=== PATIENT | female | born 1965 | race Caucasian/White ===

== ENCOUNTER 2019-06-07 09:23 | Outpatient (CLI) | payer OTHER, SELFPAY ==
--- NOTE | ~2019-06-07 | MM_ITS ---
EXAMINATION: MM diagnostic jeannie RT w sonya HISTORY: Six-month follow-up of probably benign scarring TECHNIQUE: ML, MLO and cc full field and spot 3-D tomosynthesis images of the right breast were perfo rmed and synthetic 2-D images were generated. CAD analysis was submitted and interpreted. High resolu tion targeted upper outer and lower outer quadrant right breast ultrasound was performed. COMPARISON: 12/01/2018 bilateral diagnostic digital mammogram and right breast ultrasound BREAST PARENCHYMAL COMPOSITION: There are scattered areas of fibroglandular density. FINDINGS: MAMMOGRAPHIC FINDINGS: There is stable architectural distortion in the mid outer right breast, without significant change si nce 12/01/2018. No interval mass, architectural distortion, malignant calcification, skin thickening or retraction si nce 12/11/2018 is detected. ULTRASOUND: Again noted is some prominent shadowing at the scar at 6-7 o'clock 3 cm from the nipple. There is an interval complicated cyst measuring 6 x 3.3 x 7 mm at 9:00 1 cm from the nipple. No inter nal vascularity or posterior shadowing is noted. Considering interval development of the complicated cysts and history of breast cancer, consider MRI breast imaging. IMPRESSION: 1. Interval new complicated cyst at 9:00 1 cm from nipple 2. Considering the history of right breast cancer and the interval development of the complicated cys t, consider MRI breast examination. BI-RADS Category 0: Incomplete: Needs additional imaging evaluation. Reviewed, dictated and finalized at location A. ING OPERATOR IMPRESSION: 1. Interval new complicated cyst at 9:00 1 cm from nipple 2. Considering the history of right breast cancer and the interval development of the complicated cyst, consider MRI breast examination. BI-RADS Category 0: Incomplete: Needs additional imaging evaluation.
--- NOTE | ~2019-06-07 | US_ITS ---
US breast RT limited DATE: 06/07/2019 10:57 Please refer to 06/07/2019 right diagnostic and limited right breast ultrasound report. BI-RADS Category 0: Incomplete; need additional imaging evaluation Recommendation: MRI breast examination Reviewed, dictated and finalized at Location A. Reviewed, dictated and finalized at location A. OR TESTER
== END 2019-06-07 09:24 | disposition home or self-care (01) ==
PROVIDERS: PCP Internal Medicine
DX: Z85.3 Personal history of malignant neoplasm of breast (principal); R92.8 Other abnormal and inconclusive findings on diagnostic imaging of breast
CPT/HCPCS: 76642; 77061; 77065; G0279

== ENCOUNTER 2020-05-14 16:08 | Outpatient (CLI) | payer OTHER, SELFPAY ==
--- NOTE | ~2020-05-14 | XR_ITS ---
EXAMINATION: XR chest 2V DATE: 05/14/2020 16:40 INDICATION: Right shoulder pain TECHNIQUE: PA and lateral views of the chest are obtained. COMPARISON: None available FINDINGS: The lungs are free of acute opacities. There is no pleural effusion or pneumothorax. The ca rdiomediastinal silhouette is normal. There is moderate thoracic spondylosis. IMPRESSION: 1. No acute cardiopulmonary abnormality. Reviewed, dictated and finalized at location A. LASS FITTER
--- NOTE | ~2020-05-14 | XR_ITS ---
EXAMINATION: XR shoulder RT min 2V DATE: 05/14/2020 16:40 INDICATION: Right shoulder pain. TECHNIQUE: 4 views of right shoulder were obtained. COMPARISON: None. FINDINGS: Bone alignment is normal. No fracture. Joint spaces are normal. IMPRESSION: 1. Normal right shoulder. Reviewed, dictated and finalized at location B. E MAKER IMPRESSION: 1. Normal right shoulder.
== END 2020-05-14 16:09 | disposition home or self-care (01) ==
LOC: CHSIMG 16:10
PROVIDERS: PCP Internal Medicine; Visit Provider Internal Medicine
DX: Z00.00 Encounter for general adult medical examination without abnormal findings (principal); M25.511 Pain in right shoulder
CPT/HCPCS: 71046; 73030

== ENCOUNTER 2020-05-30 07:20 | Outpatient (CLI) | payer OTHER, SELFPAY ==
[2020-05-30 07:42] LABS: Hematocrit 38.4 % (35.0-49.0); Hemoglobin 12.6 g/dL (12.0-15.0); Mean Corpuscular HGB Conc 32.8 g/dL (32.0-36.0); Mean Corpuscular Volume 103.5 fL (78.0-102.0); Mean Platelet Volume 10.1 fl (9.2-11.8); Platelet Count Result 231 K/mm3 (150-420); Red Blood Count 3.71 M/mm3 (4.20-5.40); Red Cell Distribution Width 12.8 % (11.6-14.4); White Blood Count 3.4 K/mm3 (4.8-10.8)
[2020-05-30 07:43] LABS: Add Urine Microscopic? NO; Appearance Urine Clear (Clear); Bilirubin Urine Negative (Negative); Blood Urine Negative (Negative); Color Urine Yellow (Yellow); Glucose Urine UA Negative (Negative); Ketones Urine Negative (Negative); Leukocyte Esterase Ur Negative (Negative); Nitrate Urine Negative (Negative); Protein Urine Negative (Negative); Urobilinogen Urine 0.2 mg/dL (0.2-1.0)
[2020-05-30 08:16] LABS: Band Neutrophils Percent 0 % (0-6); Basophils Absolute Manual 0.06 K/mm3 (0-0.1); Basophils Percent Manual 2 % (0-1); Eosinophils Absolute Manual 0.03 K/mm3 (0.02-0.5); Eosinophils Percent Manual 1 % (1-6); Lymphocytes Absolute Manual 1.42 K/mm3 (1.1-4.5); Lymphocytes Percent Manual 42 % (18-44); Monocytes Absolute Manual 0.17 K/mm3 (0.1-0.90); Monocytes Percent Manual 5 % (3-9); Neutrophils Percent Manual 50 % (46-73); Total Cells Counted 100
[2020-05-30 08:17] LABS: Platelet Estimate Adequate (Adequate)
[2020-05-30 08:50] LABS: Alanine Aminotransferase 59 U/L (14-59); Albumin Level 3.9 g/dL (3.4-5.0); Alkaline Phosphatase 44 U/L (46-116); Anion Gap 9 mmol/L (8-16); Aspartate Amino Transferase 56 U/L (15-37); Bilirubin,Total 0.4 mg/dL (0.00-1.00); Blood Urea Nitrogen 11 mg/dL (7-18); Calcium 8.7 mg/dL (8.5-10.1); Carbon Dioxide 29 mmol/L (21-32); Chloride 103 mmol/L (98-108); Cholesterol 196 mg/dL (0-200); Estimated Glomerular Filt Rate 57; Glucose 75 mg/dL (70-99); HDL Direct 59 mg/dL (40-60); LDL Cholesterol Calculated 94 mg/dL (<130); Osmolality Calculated 290 mOsm/kg (285-295); Potassium 4.2 mmol/L (3.5-5.1); Sodium 141 mmol/L (136-145); Thyroid Stimulating Hormone 2.01 uIU/mL (0.36-3.74); Triglycerides 213 mg/dL (0-150)
[2020-05-30 08:52] LABS: CRP < 0.2 mg/dL (0.0-0.9)
[2020-05-30 11:38] LABS: Vitamin B12 396 pg/mL (193-986)
[2020-06-02 11:17] LABS: GGT < 17 U/L (5-55)
[2020-06-02 15:42] LABS: Methylmalonic Acid 105 nmol/L (87-318)
[2020-06-03 06:38] LABS: Red Blood Cell Folate 990 ng/mL RBC (>280)
[2020-06-04 04:48] LABS: Hepatitis A Antibody IgM Nonreactive; Hepatitis B Core Antibody Nonreactive (Nonreactive); Hepatitis B Surface Antigen Nonreactive (Nonreactive); Hepatitis C Signal to Cutoff 0.02 ratio (<1.00); Hepatitis C Virus Antibody Nonreactive (Nonreactive)
== END 2020-05-30 07:21 | disposition home or self-care (01) ==
LOC: CHSLAB 07:22
PROVIDERS: PCP Internal Medicine; Visit Provider Internal Medicine
DX: Z00.00 Encounter for general adult medical examination without abnormal findings (principal); R94.5 Abnormal results of liver function studies; D75.89 Other specified diseases of blood and blood-forming organs; D72.819 Decreased white blood cell count, unspecified; M25.511 Pain in right shoulder
CPT/HCPCS: 36415; 80053; 80061; 80074; 81003; 82607; 82747; 82977; 83921; 84443; 85025; 86140

== ENCOUNTER 2022-09-28 15:48 | Outpatient (CLI) | payer OTHER, SELFPAY ==
--- NOTE | ~2022-09-28 | XR_ITS ---
XR thoracic spine 3V DATE: 09/28/2022 16:26 INDICATION: Back pain for one year. No injury. TECHNIQUE: AP, lateral, swimmer views COMPARISON: None FINDINGS: There is minimal degenerative spurring of the thoracic spine. No fracture or dislocation or bone destruction. The thoracic pedicles are intact. No paraspinal soft tissue thickening. No scolios is. IMPRESSION: Minimal degenerative spurring Reviewed, dictated and finalized at location L.
--- NOTE | ~2022-09-28 | XR_ITS ---
XR chest 2V DATE: 09/28/2022 16:27 INDICATION: Anxiety TECHNIQUE: PA and lateral views COMPARISON: 05/14/2020 2 view chest FINDINGS: Normal heart size. No hilar or mediastinal enlargement. No pulmonary infiltrate or consolid ation, pleural effusion or pulmonary vascular congestion or pneumothorax is detected. IMPRESSION: No active cardiopulmonary disease Reviewed, dictated and finalized at location L.
--- NOTE | ~2022-09-28 | XR_ITS ---
XR lumbar spine 2-3V DATE: 09/28/2022 16:26 INDICATION: Back pain for one year. No injury. TECHNIQUE: AP, lateral, coned lateral lumbosacral views COMPARISON: None FINDINGS: Normal alignment of the lumbar spine. No fracture or bone destruction is evident. The inclu ded lower thoracic and lumbar pedicles are intact. Moderate degenerative disease at L2-3 and L3-4. Remaining lumbar interspaces appear relatively preser yolande. The sacral iliac joints are intact. IMPRESSION: Mild to moderate degenerative disc disease at L2-3 and L3-4 Reviewed, dictated and finalized at location L.
== END 2022-09-28 15:49 | disposition home or self-care (01) ==
LOC: CHSIMG 15:51
PROVIDERS: PCP Internal Medicine; Visit Provider Internal Medicine
DX: M54.50 Low back pain, unspecified (principal); F32.9 Major depressive disorder, single episode, unspecified; M51.36 Other intervertebral disc degeneration, lumbar region
CPT/HCPCS: 71046; 72072; 72100

== ENCOUNTER 2024-09-10 13:56 | Outpatient (CLI) | payer OTHER, SELFPAY ==
--- NOTE | ~2024-09-10 | US_ITS ---
EXAM: Focused ultrasound examination of the soft tissues of the right lower face and upper neck HISTORY: localized swelling Right neck TECHNIQUE: Sonographic evaluation of the soft tissues of the right lower face and upper neck were per formed assessing grayscale appearance and color Doppler flow. COMPARISON: None. FINDINGS: Sonographic evaluation of the soft tissues of the right lower face and upper neck demonstrate benign fibrofatty and fibromuscular elements without a cystic or solid lesion of concern. The submandibular gland and parotid glands are unremarkable sonographically. IMPRESSION: No sonographic abnormality is appreciated on focused ultrasound examination, as detailed above.. Reviewed, dictated and finalized at location A.
--- OUTSIDE RECORDS SUMMARY | 2024-09-10 14:01 | XMS_ITS | Referral Summary ---
Author Organization [facility] Address [address] [place] [address] Care Team Providers Care Rodent Control Worker Name Role Phone Harpreet Heath MD Primary Care Provider [phone] Harpreet Heath MD Unavailable [phone] Kelley Vicente MD Unavailable Leonel William MD Unavailable [phone] Encounters Date Type Department Care Team Description 07/05/2024 11:30 AM CDT Office Visit [facility] Surgery [address] [place] [address] [address] [place] [address] Kelley Vicente MD S/P cosmetic plastic surgery (Primary Dx) from Last 3 Months Allergies Active Allergy Reactions Criticality Noted Date Comments Ampicillin Rash Medium Per inpatient chart records, cefazolin was administered in 2020 & 2021 Medications buPROPion XL (WELLBUTRIN XL) 150 mg 24 hr tabletIndicatio ns:sweating Take 1 tablet (150 mg total) by mouth every morning 11/01/2023 Active omeprazole (PriLOSEC) 20 mg capsule Take 1 capsule (20 mg total) by mouth daily as needed (heartburn) Active acetaminophen (TYLENOL) 500 mg tablet Take 2 tablets (1,000 mg total) by mouth every 6 (six) hours as needed for pain Active escitalopram (LEXAPRO) 10 mg tabletIndicatio ns:Anxiety with Depression Take 1 tablet (10 mg total) by mouth nightly Active naltrexone (DEPADE) 50 mg tabletIndicatio ns:alcoholism Take 1 tablet (50 mg total) by mouth nightly 02/19/2024 Active ibuprofen 200 mg tab/cap Take 2 tablet/capsu le (400 mg total) by mouth every 6 (six) hours as needed for pain Active gabapentin (NEURONTIN) 600 mg tablet TAKE ONE TABLET BY MOUTH AT BEDTIME 90 tablet 06/04/2024 Active oxyBUTYnin (DITROPAN) 5 mg tablet TAKE TWO TABLETS BY MOUTH DAILY 60 tablet 2 06/22/2024 Active Active Problems Problem Noted Date Diagnosed Date Varicose veins of lower extremity with pain, lef t 11/24/2023 Varicose veins of left lower extremity with pain 05/30/2023 Hx of breast reconstruction 05/21/2021 Overview (05/21/2021): Added automatically from request for surgery [id number] Personal history of breast cancer 07/17/2020 Overview (07/17/2020): Added automatically from request for surgery [id number] Breast asymmetry between emilio maikol breast and reconstructed breast 07/17/2020 Overview (07/17/2020): Added automatically from request for surgery [id number] Encounter for cosmetic procedure 07/17/2020 Overview (07/17/2020): Added automatically from request for surgery [id number] Abnormal findings on diagnostic imaging of breas t 06/22/2019 History of breast cancer 12/20/2017 Malignant neoplasm of lower- outer quadrant of right breast of female, estrogen receptor positive (CMS/HCC) 12/31/2016 Immunizations Immunization Administration Dates Next Due DTP 12/27/1970, 7,1965,05/25,1965 Influenza, Quadrivalent, Melissa l Culture-based MDCK, Preservative Free, Antibiotic Free, Intramuscular 02/01/2020 MMR 09/25/1991 Measles / Rubella 08/18/1970 Mumps 03/20/1971 OPV 12/27/1970, 7,1965,05/25,1965 Rubella 03/08/1966 Td, adsorbed 09/25/1991,11/11/1975 Tdap 01/11/2014 Social History Tobacco Use Types Packs/Day Years Used Date Smoking Tobacco: Never Passive Smoke Exposure: Never Smokeless Tobacco: Never Tobacco Cessation:Counseling Given: Not Answered Alcohol Use Standard Drinks/Week Comments Yes 5 (1 standard drink = 0.6 oz pur e alcohol) AUDIT-C Answer Date Recorded Q1: How often do you have a drink containing alcohol? Never 04/11/2024 Q2: How many drinks containi ng alcohol do you have on a typical day when you are drinking? Patient does not drink Q3: How often do you have si x or more drinks on one occasion? Never 04/11/2024 Personal Safety Answer Date Recorded Have you ever been in or are you currently in a harmful physical or emotional relationship or is someone making you feel afraid or unsafe? Denies 04/11/2024 Comments No Sex and Gender Information Value Date Recorded Sex Assigned at Not on file Legal Sex Female 10:01 AM CDT Gender Identity Female 11/15/2023 10:36 AM CDT Sexual Orientation Choose not to disclose 2020 7:42 AM CDT Last Filed Vital Signs Vital Sign Reading Time Taken Comments Blood Pressure 178/89 04/11/2024 11:05 AM GRAIN CLEANER Pulse 68 04/11/2024 11:05 AM GRAIN CLEANER Temperature 36.5 C (97.7 F) 04/11/2024 11:05 AM GRAIN CLEANER Respiratory Rate 45 04/11/2024 11:05 AM GRAIN CLEANER Oxygen Saturation 95% 04/11/2024 11:05 AM GRAIN CLEANER Inhaled Oxygen Concentration - - Weight 61.2 kg (135 lb) 04/11/2024 6:51 AM GRAIN CLEANER Height 165.1 cm (5' 5 ) 04/11/2024 6:51 AM GRAIN CLEANER Body Mass Index 22.47 04/11/2024 6:51 AM GRAIN CLEANER Plan of Treatment Not on file Procedures Procedure Name Priority Date/Time Associated Diagnosis Comments SCREENING MAMMOGRAM BILATERAL W ZARIA Schedule Routine, Read Routine (OP Routine) 10/03/2023 11:23 AM CDT Screening mammogram, encounter for from Last 3 Months or Most Recently Relevant to Health Maintenance Results * Screening Mammogram Bilateral W Zaria (10/03/2023 11:23 AM CDT) Anatomical Region Laterality Modality Breast Bilateral Mammography Narrative 10/04/2023 10:50 AM CDT Mammogram Technique: Bilateral Digital Breast Tomosynthesis, Bilateral C-view 2D Screening mammogram. Views obtained: bilateral craniocaudal and bilateral mediolateral oblique. Computer Aided Detection was performed. Mammogram Findings: The present examination has been compared to prior imaging studies performed at [facility] on 01/23/2020, 02/02/2021 and 06/25/2022. There are scattered areas of fibroglandular density. There are post breast conservation therapy changes in the right breast. There is no suspicious abnormality in either breast. Impression: Post breast conservation therapy changes in the right breast are benign. Annual screening mammography is recommended. OVERALL FINAL ASSESSMENT: BI-RADS CATEGORY 2: Benign. Procedure Note Chaparrita Berrios MD - 10/04/2023 Mammogram Technique: Bilateral Digital Breast Tomosynthesis, Bilateral C-view 2D Screening mammogram. Views obtained: bilateral craniocaudal and bilateral mediolateral oblique. Computer Aided Detection was performed. Mammogram Findings: The present examination has been compared to prior imaging studies performed at [facility] on 01/23/2020, 02/02/2021 and 06/25/2022. There are scattered areas of fibroglandular density. There are post breast conservation therapy changes in the right breast. There is no suspicious abnormality in either breast. Impression: Post breast conservation therapy changes in the right breast are benign. Annual screening mammography is recommended. OVERALL FINAL ASSESSMENT: BI-RADS CATEGORY 2: Benign. us Self Screening Mammogram IMG MAMMO PROCEDURES Fi nal Result from Last 3 Months or Most Recently Relevant to Health Maintenance Insurance [facility] PL[facility] PL[facility] Advance Directives For more information, please contact: [phone] * Full Code (Latest Code Status on File) Date Activated Date Inactivated Comments 08/04/2021 3:43 PM 08/05/2021 2:37 PM * Full Code Date Activated Date Inactivated Comments 09/12/2020 12:03 PM 09/13/2020 4:01 PM Care Teams Rodent Control Worker Relationship Specialty Start Date End Date Harpreet Heath MD PCP - General 01/10/17 Harpreet Heath MD 01/10/17 Kelley Vicente MD [address] [facility] [address] [place] [address] Referring Physician Plastic Surgery 09/13/20 Leonel William MD [address] [facility] [address] [place] [address] Surgeon Vascular Surgery 01/05/24
--- OUTSIDE RECORDS SUMMARY | 2024-09-10 14:01 | XMS_ITS | Encounter Summary ---
Author Organization [facility] Address [address] [place] [address] Phone Care Team Providers Care Manager Intelligence Name Role Phone Harpreet Heath MD Primary Care Provider [phone] Harpreet Heath MD Unavailable [phone] Kelley Vicente MD Unavailable [phone] Leonel Willaim MD Unavailable [phone] Encounter Details Date Type Department Care Team (Latest Contact Info) Description 12/01/2018 Orders Only [facility] Scanning, Provider Social History Tobacco Use Types Packs/Day Years Used Date Smoking Tobacco: Never Smokeless Tobacco: Never Alcohol Use Standard Drinks/Week Comments Yes 0 (1 standard drink = 0.6 oz pur e alcohol) Comments No Sex and Gender Information Value Date Recorded Sex Assigned at Not on file Legal Sex Female 10:01 AM CDT Gender Identity Female 11/15/2023 10:36 AM CDT Sexual Orientation Choose not to disclose 2020 7:42 AM CDT documented as of this encounter Plan of Treatment Not on file documented as of this encounter Procedures Procedure Name Priority Date/Time Associated Diagnosis Comments SCAN - LABS 12/01/2018 documented in this encounter Results * SCAN - LABS (12/01/2018) us Provider Scanning Final Result documented in this encounter Visit Diagnoses Not on filedocumented in this encounter Care Teams Manager Intelligence Relationship Specialty Start Date End Date Harpreet Heath MD PCP - General 01/10/17 Harpreet Heath MD 01/10/17 Kelley Vicente MD [address] [facility] [address] [place], [place] [id number] Referring Physician Plastic Surgery 09/13/20 Leonel William MD [address] [facility] [address] [place] [address] Surgeon Vascular Surgery 01/05/24 documented as of this encounter
--- OUTSIDE RECORDS SUMMARY | 2024-09-10 14:01 | XMS_ITS | Clinical Summary ---
Author Organization [facility] Address [address] [place] [address] Care Team Providers Care Work Force Advisor Name Role Phone Harpreet Heath MD Primary Care Provider [phone] Harpreet Heath MD Unavailable [phone] Kelley Vicente MD Unavailable [phone] Leonel William MD Unavailable [phone] Allergies Active Allergy Reactions Criticality Noted Date [...] (05/21/2021): Added automatically from request for surgery [id number] Personal history of breast cancer 07/17/2020 Overview (07/17/2020): Added automatically from request for surgery [id number] Breast asymmetry between emilio maikol breast and reconstructed breast 07/17/2020 Overview (07/17/2020): Added automatically from request for surgery [id number] Encounter for cosmetic procedure 07/17/2020 Overview (07/17/2020): Added automatically from request for surgery [id number] Abnormal findings on diagnostic imaging of breas t 06/22/2019 History of breast cancer 12/20/2017 Malignant neoplasm of lower- outer quadrant of right breast of female, estrogen receptor positive ([facility]/HCC) 12/31/2016 Encounters Date Type Department Care Team Description 07/05/2024 11:30 AM CDT Office Visit [facility] Surgery [facility] [address] [place] [address] Kelley Vicente MD S/P cosmetic plastic surgery (Primary Dx) from Last 3 Months Immunizations Immunization Administration Dates Next Due DTP 12/27/1970, 7,1965,05/25,1965 Influenza, Quadrivalent, Melissa l Culture-based MDCK, Preservative Free, Antibiotic Free, Intramuscular 02/01/2020 MMR 09/25/1991 Measles / Rubella 08/18/1970 Mumps 03/20/1971 OPV 12/27/1970, 7,1965,05/25,1965 Rubella 03/08/1966 Td, adsorbed 09/25/1991,11/11/1975 Tdap 01/11/2014 Surgical History Surgery Date Site/Laterality Comments TUBAL LIGATION 04/25/2001 - 04/24/2002 BLEPHAROPTOSIS REPAIR 04/25/2014 - 04/24/2015 Bilateral MASTECTOMY, PARTIAL 02/10/2017 Right partial mastectomy with sentinel lymph node biopsy BREAST BIOPSY 09/21/2019 Right COLONOSCOPY 04/25/2014 - 04/24/2015 FACIAL COSMETIC SURGERY 04/25/2014 - 04/24/2015 face lift REDUCTION MAMMAPLASTY 08/04/2021 Left with tummy tuck ABDOMINOPLASTY 09/12/2020 VARICOSE VEIN SURGERY 01/05/2024 Left stab phlebectomy(L Leg) ABLATION 04/25/2014 - 04/24/2015 Uterine OTHER SURGICAL HISTORY 09/12/2020 evacuation of hematoma - abdomen Medical History Medical History Date Comments Wears glasses Breast cancer (HCC) last radiati on 2018 PONV (postoperative nausea and vomiting) History of alcoholism (HCC) Varicose veins of lower extremity Acid reflux Family History Medical History Relation Name Comments Cancer Father Lung cancer Father Family history of lung cancer - (Added by TW Conv) No Known Problems Mother Relation Name Status Comments Father Alive Mother Alive Social History Tobacco Use Types Packs/Day Years [...] not to disclose 2020 7:42 AM CDT Obstetrics History Last Filed Vital Signs Vital Sign Reading Time Taken Comments Blood Pressure 178/89 04/11/2024 11:05 AM COSMETOLOGY PROFESSOR Pulse 68 04/11/2024 11:05 AM COSMETOLOGY PROFESSOR Temperature 36.5 C (97.7 F) 04/11/2024 11:05 AM COSMETOLOGY PROFESSOR Respiratory Rate 45 04/11/2024 11:05 AM COSMETOLOGY PROFESSOR Oxygen Saturation 95% 04/11/2024 11:05 AM COSMETOLOGY PROFESSOR Inhaled Oxygen Concentration - - Weight 61.2 kg (135 lb) 04/11/2024 6:51 AM COSMETOLOGY PROFESSOR Height 165.1 cm (5' 5 ) 04/11/2024 6:51 AM COSMETOLOGY PROFESSOR Body Mass Index 22.47 04/11/2024 6:51 AM COSMETOLOGY PROFESSOR Plan of Treatment Health Maintenance Due Date Last Done Comments Cervical Cancer Screening 1965 Colon Cancer Screening-Colonoscopy 1965 Depression Screening 1965 Hepatitis C Screening 1965 Hepatitis B Screening 1983 Regular Well Visit/Exam 18-64 1983 Zoster Vaccine (1 of 2) 2015 Covid-19 Vaccine (3 - season) 2023 06/07/2020, 05/10/2020 Influenza Vaccine (#1) 2023 02/01/2020 DTaP/Tdap/Td Vaccine (7 - Td or Tdap) 01/12/2024 01/11/2014, 09/25/1991, 11/11/1975, Additional history exists Breast Cancer Screening-Mammogram 10/02/2024 10/03/2023, 06/25/2022, 02/02/2021, Additional history exists Pneumococcal vaccine <65 Aged Out No longer eligible based on patient's age to complete this topic Procedures Procedure Name Priority Date/Time Associated Diagnosis Comments SCREENING MAMMOGRAM BILATERAL W ROBERT Schedule Routine, Read Routine (OP Routine) 10/03/2023 11:23 AM CDT Screening mammogram, encounter for from Last 3 Months or Most Recently Relevant to Health Maintenance Results * Screening Mammogram Bilateral W Robert (10/03/2023 11:23 AM CDT) Anatomical Region Laterality Modality Breast Bilateral Mammography Narrative 10/04/2023 10:50 AM CDT Mammogram Technique: Bilateral Digital Breast Tomosynthesis, Bilateral C-view 2D Screening mammogram. Views obtained: bilateral craniocaudal and bilateral mediolateral oblique. Computer Aided Detection was performed. Mammogram Findings: The present examination has been compared to prior imaging studies performed at [facility] on 01/23/2020, 02/02/2021 and 06/25/2022. There are [...] compared to prior imaging studies performed at [facility] on 01/23/2020, 02/02/2021 and 06/25/2022. There are [...] Most Recently Relevant to Health Maintenance Insurance [facility] PLUS [facility]US [facility] PLUS Advance Directives For more information, please contact: [phone] * Full Code (Latest Code Status on File) Date Activated Date Inactivated Comments 08/04/2021 3:43 PM 08/05/2021 2:37 PM * Full Code Date Activated Date Inactivated Comments 09/12/2020 12:03 PM 09/13/2020 4:01 PM Care Teams Work Force Advisor Relationship Specialty Start Date End Date Harpreet Heath MD PCP - General 01/10/17 Harpreet Heath MD 01/10/17 Kelley Vicente MD [address] [place] [address] [place], [place] [id number] Referring Physician Plastic Surgery 09/13/20 Leonel William MD [address] [place] [address] [place], [place] [id number] Surgeon Vascular Surgery 01/05/24
--- OUTSIDE RECORDS SUMMARY | 2024-09-10 14:01 | XMS_ITS | Encounter Summary ---
Author Organization [facility] Address [address] [place] [address] Phone Care Team Providers Care Tool And Die Maker Name Role Phone Harpreet Heath MD Primary Care Provider [phone] Harpreet Heath MD Unavailable [phone] Kelley Vicente MD Unavailable Leonel William MD Unavailable [phone] Encounter Details Date Type Department Care Team (Late st Contact Info) Description 06/22/2017 Orders Only [facility] ProviderAlejandro MD [address] [place] [id number] Social History Tobacco Use Types Packs/Day Years Used Date Smoking Tobacco: Never Comments Unknown Sex and Gender Information Value Date Recorded Sex Assigned at Not on file Legal Sex Female 10:01 AM CDT Gender Identity Female 11/15/2023 10:36 AM CDT Sexual Orientation Choose not to disclose 2020 7:42 AM CDT documented as of this encounter Plan of Treatment Not on file documented as of this encounter Procedures Procedure Name Priority Date/Time Associated Diagnosis Comments GENERAL RADIOLOGY REPORT 06/22/2017 documented in this encounter Results * GENERAL RADIOLOGY REPORT (06/22/2017) Anatomical Region Laterality Modality Radiographic Kirsten ging Narrative 06/22/2017 Ordered by an unspecified provider. Historical Provider MD DAVIS XR PROCEDURES Final R esult documented in this encounter Visit Diagnoses Not on filedocumented in this encounter Care Teams Tool And Die Maker Relationship Specialty Start Date End Date Harpreet Heath MD PCP - General 01/10/17 Harpreet Heath MD 01/10/17 Kelley Vicente MD [address] [place] [address] [place], [place] [id number] Referring Physician Plastic Surgery 09/13/20 Leonel William MD [address] [place] [address] [place] [address] Surgeon Vascular Surgery 01/05/24 documented as of this encounter
--- OUTSIDE RECORDS SUMMARY | 2024-09-10 14:01 | XMS_ITS ---
Author Organization [facility] Address [address] [place] [address] Care Team Providers Care Pot Reliner Name Role Phone Harpreet Heath MD Primary Care Provider [phone] Harpreet Heath MD Unavailable [phone] Kelley Vicente MD Unavailable [phone] Leonel William MD Unavailable [phone] Active Problems Problem Noted Date Diagnosed Date Varicose veins of lower extremity with pain, lef t 11/24/2023 Varicose veins of left lower extremity with pain 05/30/2023 Hx of breast reconstruction 05/21/2021 Overview (05/21/2021): Added automatically from request for surgery [id number] Personal history of breast cancer 07/17/2020 Overview (07/17/2020): Added automatically from request for surgery [id number] Breast asymmetry between emilio maikol breast and reconstructed breast 07/17/2020 Overview (07/17/2020): Added automatically from request for surgery [id number] Encounter for cosmetic procedure 07/17/2020 Overview (07/17/2020): Added automatically from request for surgery [id number] Abnormal findings on diagnostic imaging of breas t 06/22/2019 History of breast cancer 12/20/2017 Malignant neoplasm of lower- outer quadrant of right breast of female, estrogen receptor positive (CMS/HCC) 12/31/2016 Current Treatment and Therapy Plans No current plan information found. Past Treatment and Therapy Plans No past plan information found. Radiation Treatments * Course C1 R BREAST 2017 04/12/2017 - 05/17/2017 Treatment Period Energy Fraction Dose Fractions Total Dose Plans Planned RT BRST BOOST 05/06/2017 - 05/17/2017 200 8 / 1,600 RIGHT BREAST:1 04/28/2017 - 05/05/2017 266 5 / 1,330 RIGHT BREAST 04/12/2017 - 04/27/2017 277 11 / 4,433.3 Reference Points Delivered PTV BOOST_DPV 05/06/2017 - 05/17/2017 1,600 PTV R [id number] 04/28/2017 - 05/05/2017 1,330 DAVIS WP 04/12/2017 - 04/27/2017 3,048
--- OUTSIDE RECORDS SUMMARY | 2024-09-10 14:01 | XMS_ITS | Encounter Summary ---
Author Organization [facility] Healthcare Address [address] [place] [address] Care Team Providers Care Dry Cleaner Hand Name Role Phone Harpreet Heath MD Primary Care Provider [phone] Harpreet Heath MD Unavailable [phone] Kelley Vicente MD Unavailable [phone] Leonel William MD Unavailable [phone] Encounter Details Date Type Department Care Team (Late st Contact Info) Description 04/05/2018 Telephone [facility] Advanced Medicine Radiation Oncology [address] [facility] [place] [address] Shaq Hawk CMA Social History Tobacco Use Types Packs/Day Years [...] on file documented as of this encounter Visit Diagnoses Not on filedocumented in this encounter Care Teams Dry Cleaner Hand Relationship Specialty Start Date End Date Harpreet Heath MD PCP - General 01/10/17 Harpreet Heath MD 01/10/17 Kelley Vicente MD [address] [facility] [address] [place] [address] Referring Physician Plastic Surgery 09/13/20 Leonel William MD [address] [facility] [address] [place] [address] Surgeon Vascular Surgery 01/05/24 documented as of this encounter
--- OUTSIDE RECORDS SUMMARY | 2024-09-10 14:01 | XMS_ITS | Patient Health Record ---
Author Organization [facility] [employer] Address [address] [place] [address] Care Team Providers Care Carpentry Specialist Name Role Phone Curtis Parada Unavailable [phone] Brittanysilvio Yue Unavailable [phone] Migration, Provider Unavailable Unavailable Allergies No Known Allergies Reason For Referral No Information Medications Medication SIG (Take, Route, Frequency, Duration) Notes Start Date End Date Status oxyBUTYnin Chloride 5 MG Oral 08/24/2023 Active Escitalopram Oxalate 10 MG 1 tablet Oral Once a day for 90 days Active Gabapentin 600 MG Oral 08/24/2023 A ctive buPROPion HCl ER (XL) 150 MG 1 tablet in the morning Oral Once a day for 90 days Active buPROPion HCl ER (XL) 300 MG 1 tablet in the morning Orally Once a day for 90 days Active Naltrexone HCl 50 MG 1 tablet Orally Once a day for 90 days Active Escitalopram Oxalate 10 MG TAKE ONE TABLET BY MOUTH DAILY Active SEMAGLUTIDE (WEIGHT LOSS) 0.25 MG/0.5 ML SUBCUTANEOUS PEN INJECTOR *Reorder from [employer] for eRx and Interaction Alerts* 08/24/2023 Active Social History Tobacco Use: Social History Observation Description Date Details (start date - stop date) Never Smoker NA - NA Sex Assigned At : Social History Observation Description Sex Assigned At Female Tobacco Control (Standard) Question Answer Notes Tobacco use: Nonsmoker AUDIT-C (Standard) Question Answer Notes Did you have a drink containing alcohol in the p ast year? No Problems Problem Type SNOMED Code ICD Code Onset Dates Problem Status W/U Status Risk Notes Problem Alcohol dependence, uncomplicated (F10.20) Active confirmed Problem Generalized anxiety disorder (34438750) Generalized anxiety disorder (F41.1) Active confirmed Vital Signs Heart Rate 76 /min 07/25/2024 Height-cm 165.10 cm 07/25/2024 Blood pressure diastolic 65 mm Hg 07/25/2024 Weight-kg 63.5 kg 07/25/2024 Height 65.00 in 07/25/2024 Blood pressure systolic 93 mm Hg 07/25/2024 Weight 140 lbs 07/25/2024 BMI 23.29 kg/m2 07/25/2024 Encounters Encounter Location Date Provider Diagnosis [address] [address] 09/30/2023 Yue Kurilla Alcohol dependence, uncomplicated F10.20 and Generalized anxiety disorder F41.[address] [address] 01/25/2024 Yue Kurilla Alcohol dependence, uncomplicated F10.20 and Generalized anxiety disorder F41.[address] [address] 07/25/2024 Yueginger Rubio Encounter for screening for depression Z13.31 ; Encounter for screening for cardiovascular disorders Z13.6 ; Alcohol dependence, uncomplicated F10.20 and Generalized anxiety disorder F41.[address] [address] 09/11/2023 Provider Migration Assessments Encounter Date Diagnosis (ICD Code) Assessment Notes Treatment Notes Treatment Clinical Notes Section Notes 09/30/2023 Alcohol dependence, uncomplicated (ICD-10 - F10.20) Patient requesting to transition to PO naltrexone due to scheduling for monthly injections, previously tolerated PO treatment. Stop Vivitrol injection and start naltrexone 50mg qd 09/30/2023 Generalized anxiety disorder (ICD-10 - F41.1) 01/25/2024 Alcohol dependence, uncomplicated (ICD-10 - F10.20) 07/25/2024 Encounter for screening for depression (ICD-10 - Z13.31) 07/25/2024 Encounter for screening for cardiovascular disorders (ICD-10 - Z13.6) 01/25/2024 Generalized anxiety disorder (ICD-10 - F41.1) 07/25/2024 Alcohol dependence, uncomplicated (ICD-10 - F10.20) 07/25/2024 Generalized anxiety disorder (ICD-10 - F41.1) 01/25/2024 Other Stable, continue current medications. Refills sent. Patient educated on all medications including potential benefits, side effects, risks. Educated on proper dosing schedule and importance of compliance. 07/25/2024 Other Stable, cont current medications. Refills sent in. Patient educated on all medications including potential benefits, side effects, risks. Educated on proper dosing schedule and importance of compliance. -Assessment and treatment plan reviewed with patient. -Compliance with treatment plan importance discussed. -Discussed the risks/benefits of this medication -Discussed medication side effects. -Contact office if symptoms worsen. -Discussed that it can take up to 6-8 weeks to see full therapeutic effects of psychotropic medications. -Crisis prevention hotline 388. Plan Of Treatment Next Appt Details Provider Name:Yue Diaz elliott, 12/26/2024 04:30:00 PM, [address] [facility] [address], [facility] [address], [place], [address], Insurance Providers Payer Name Payer Address Payer Phone Subscriber Number Group Number Insured Name Patient Relationship to Insured Coverage Start Date Coverage End Date [facility] [address] [place] [address] [id number] KATALINA ZIMMER Spouse - patient is the spouse of the insured Medical (General) History Medical History History ICD Code Problems: Alcohol dependence Alcohol withdrawal Attention deficit hyperactivity disorder , combined type Attention deficit hyperactivity disorder , predominantly inattentive type Generalized anxiety disorder , Surgical History Surgery Date(Month/Year) Breast surgery (39035) 09/11/2016 Endometrial ablation (51517) 02/06/2016
== END 2024-09-10 13:57 | disposition home or self-care (01) ==
LOC: CHSIMG 13:59
PROVIDERS: PCP Internal Medicine; Visit Provider Nurse Practitioner Family
DX: R22.0 Localized swelling, mass and lump, head (principal)
CPT/HCPCS: 76536

== ENCOUNTER 2025-01-15 16:29 | Outpatient (CLI) | payer OTHER, SELFPAY ==
--- NOTE | ~2025-01-15 | XR_ITS ---
EXAMINATION: XR hand RT min 3V, 01/15/2025 16:50 CDT HISTORY: BL hand pain, right ant. shoulder pain COMPARISON: No comparisons available. Findings: No acute fracture or malalignment. No significant degenerative changes. Soft tissues unremarkable. Impression: No acute fracture or malalignment. Reviewed, dictated and finalized at location A. Impression: No acute fracture or malalignment.
--- NOTE | ~2025-01-15 | XR_ITS ---
EXAMINATION: XR shoulder RT min 2V, 01/15/2025 16:50 CDT HISTORY: BL hand pain, right ant. shoulder pain COMPARISON: No comparisons available. Findings: No acute fracture or malalignment. No significant degenerative changes. Soft tissues unremarkable. Impression: No acute fracture or malalignment. Reviewed, dictated and finalized at location A. Impression: No acute fracture or malalignment.
--- NOTE | ~2025-01-15 | XR_ITS ---
EXAMINATION: XR hand LT min 3V, 01/15/2025 16:45 CDT HISTORY: BL hand pain, right ant. shoulder pain COMPARISON: No comparisons available. Findings: No acute fracture or malalignment. Severe degenerative changes of the second distal interphalangeal joint and the first metacarpal carpal joint. Soft tissues unremarkable. Impression: No acute fracture or malalignment. Reviewed, dictated and finalized at location A. Impression: No acute fracture or malalignment.
--- OUTSIDE RECORDS SUMMARY | 2025-01-15 16:32 | XMS_ITS | Patient Health Record ---
Author Organization [facility] [employer] Address [address] [facility] [address] [place] [address] Care Team Providers Care Tire Debeader Name Role Phone Yue Rubio Unavailable [phone] Allergies No Known Allergies Reason For Referral No Information Medications Medication SIG (Take, Route, Frequency, Duration) Notes Start Date End Date Status Naltrexone HCl 50 MG Tablet 1 tablet Orally Once a day; Duration: 90 days 12/26/2024 06/24/2025 Active buPROPion HCl ER (XL) 300 MG Tablet Extended Release 24 Hour 1 tablet in the morning Orally Once a day; Duration: 90 days 12/26/2024 Active SEMAGLUTIDE (WEIGHT LOSS) 0.25 MG/0.5 ML SUBCUTANEOUS PEN INJECTOR *Reorder from [employer] for eRx and Interaction Alerts* 08/24/2023 Active Gabapentin 600 MG Tablet Oral 08/24/2023 Active oxyBUTYnin Chloride 5 MG Tablet Oral 08/24/2023 Active Escitalopram Oxalate 10 MG Tablet 1 tablet Oral Once a day; Duration: 90 days 12/26/2024 Active buPROPion HCl ER (XL) 150 MG Tablet Extended Release 24 Hour 1 tablet in the morning Oral Once a day; Duration: 90 days 12/26/2024 Active Social History Tobacco Use: Social History Observation Description Date Details (start date - stop date) Never Smoker NA - NA Sex Assigned At : Social History Observation Description Sex Assigned At Female Social History Social History Social Info Question Answer Notes Household: Marital Status: Number of Adults in household: 4 Level of Education: Finished College Drug/Alcohol: Social Info Question Answer Notes Drugs Have you used drugs other than those for medical reasons in the past 12 months? No AUDIT-C (Standard) Did you have a drink containing alcohol in the past year? No Tobacco Use: Social Info Question Answer Notes Tobacco Control (Standard) Tobacco use: Nonsmoker Additional Details Category Social Info Options Details Migrated Social History Migrated Social History Alcohol Intake: None 10/11/2022,Tobacco Years: Never smoker 09/30/2022 Problems Problem Type SNOMED Code ICD Code Onset Dates Problem Status W/U Status Risk Notes Problem Alcohol dependence (49018910) Alcohol dependence, uncomplicated (F10.20) Active confirmed Problem Generalized anxiety disorder (92115040) Generalized anxiety disorder (F41.1) Active confirmed Vital Signs Heart Rate 67 /min 12/26/2024 Height-cm 165.1 cm 12/26/2024 Blood pressure diastolic 73 mm Hg 12/26/2024 Weight-kg 66.32 kg 12/26/2024 Height 65.00 in 12/26/2024 Blood pressure systolic 117 mm Hg 12/26/2024 Weight 146.2 lbs 12/26/2024 BMI 24.33 kg/m2 12/26/2024 Encounters Encounter Location Date Provider Diagnosis [facility] [employer] [address] [address] 01/25/2024 Yue Rubio Alcohol dependence, uncomplicated F10.20 and Generalized anxiety disorder F41.1 [facility] [employer] [address] [address] 07/25/2024 Yue Rubio Encounter for screen ing for depression Z13.31 ; Encounter for screening for cardiovascular disorders Z13.6 ; Alcohol dependence, uncomplicated F10.20 and Generalized anxiety disorder F41.1 [facility] [employer] [address] [address] 12/26/2024 Yue Kursilvio Alcohol dependence, uncomplicated F10.20 and Generalized anxiety disorder F41.1 Assessments Encounter Date Diagnosis (ICD Code) Assessment Notes Treatment Notes Treatment Clinical Notes Section Notes 01/25/2024 Alcohol dependence, uncomplicated (ICD-10 - F10.20) 07/25/2024 Encounter for screening for depression (ICD-10 - Z13.31) 12/26/2024 Alcohol dependence, uncomplicated (ICD-10 - F10.20) 12/26/2024 Generalized anxiety disorder (ICD-10 - F41.1) SSRI/SNRI side effects discussed including but not limited to, gastric upset, nausea, vomiting, diarrhea and/or constipation, weight changes, sexual side effects including loss of libido, increased suicidal thoughts/behavi ors in children and young adults, and serotonin syndrome. Common side effects of Wellbutrin include insomnia, increased anxiety, nausea, dizziness, decreased appetite, restlessness, irritability and anger, increased sweating or hot flashes, tremors, joint pain. Wellbutrin is not recommended in individuals with a history of seizures. If side effects persist, please contact the office. 07/25/2024 Encounter for screening for cardiovascular disorders [...] therapeutic effects of psychotropic medications. -Crisis prevention [facility] 988. 12/26/2024 Other Stable on current medication regimen, continue at current doses. -Refills sent in today -No concerns today Patient educated on all medications including potential [...] therapeutic effects of psychotropic medications. -Crisis prevention [facility] 988. Plan Of Treatment Next Appt Details Provider Name:Tanmay milligan, 06/25/2025 04:15:00 PM, [address], [place], [address], Insurance Providers Payer Name Payer Address Payer Phone Subscriber Number Group Number Insured Name Patient Relationship to Insured Coverage Start Date Coverage End Date [facility] [address] [place] [phone] [id number] KATALINA ZIMMER Spouse - patient is the spouse of the insured Medical (General) History Medical History History ICD Code Problems: Alcohol dependence Alcohol withdrawal Attention deficit hyperactivity disorder , combined type Attention deficit hyperactivity disorder , predominantly inattentive type Generalized anxiety disorder , Surgical History Surgery Date(Month/Year) Breast surgery (92720) 09/11/2016 Endometrial ablation (92438) 02/06/2016
--- OUTSIDE RECORDS SUMMARY | 2025-01-15 16:32 | XMS_ITS | Clinical Summary ---
Author Organization [facility] Address [address] [place] [address] Care Team Providers Care Cloth Tester Name Role Phone Harpreet Heath MD Primary Care Provider [phone] Harpreet Heath MD Unavailable [phone] Kelley Vicente MD Unavailable [phone] Leonel William MD Unavailable [phone] Allergies Active Allergy Reactions Criticality Noted Date Comments Ampicillin Rash Medium Per inpatient chart records, cefazolin was administered in 2020 & 2021 Medications buPROPion XL (WELLBUTRIN XL) 150 mg 24 hr tabletIndicati ons:sweating Take 1 tablet (150 mg total) by mouth every morning 4 Active omeprazole (PriLOSEC) 20 mg capsule Take 1 capsule (20 mg total) by mouth daily as needed (heartburn) Active acetaminophen (TYLENOL) 500 mg tablet Take 2 tablets (1,000 mg total) by mouth every 6 (six) hours as needed for pain Active escitalopram (LEXAPRO) 10 mg tabletIndicati ons:Anxiety with Depression Take 1 tablet (10 mg total) by mouth nightly Active naltrexone (DEPADE) 50 mg tabletIndicati ons:alcoholism Take 1 tablet (50 mg total) by mouth nightly 4 Active ibuprofen 200 mg tab/cap Take 2 tablet/caps ule (400 mg total) by mouth every 6 (six) hours as needed for pain Active oxyBUTYnin (DITROPAN) 5 mg tablet TAKE TWO TABLETS BY MOUTH DAILY 60 tablet 2 5 Active gabapentin (NEURONTIN) 600 mg tablet TAKE ONE TABLET BY MOUTH AT BEDTIME 90 tablet 5 Active oxyBUTYnin (DITROPAN) 5 mg tablet TAKE TWO TABLETS BY MOUTH DAILY 60 tablet 2 5 12/21/19 Discontinued gabapentin (NEURONTIN) 600 mg tablet TRANSFERRED : 08/07/24 -READ RX NOTE (ALT-N)- TAKE ONE TABLET BY MOUTH AT BEDTIME 90 tablet 5 01/08/20 Discontinued Active Problems Problem Noted Date Diagnosed Date Varicose veins of lower extremity with pain, lef t 11/24/2023 Varicose veins of left lower extremity with pain 05/30/2023 Hx of breast reconstruction 05/21/2021 Overview (05/21/2021): Added automatically from request for surgery [id number] Personal history of breast cancer 07/17/2020 Overview (07/17/2020): Added automatically from request for surgery [id number] Breast asymmetry between emilio maikol breast and reconstructed breast 07/17/2020 Overview (07/17/2020): Added automatically from request for surgery [id number] Encounter for cosmetic procedure 07/17/2020 Overview (07/17/2020): Added automatically from request for surgery [id number] Abnormal findings on diagnostic imaging of breas t 06/22/2019 History of breast cancer 12/20/2017 Malignant neoplasm of lower- outer quadrant of right breast of female, estrogen receptor positive ([facility]/HCC) 12/31/2016 Immunizations Immunization Administration Dates Next Due [...] Date Comments Wears glasses Breast cancer (HCC) 11/2016 last radiati on 2017 PONV (postoperative nausea and vomiting) History of alcoholism (HCC) Varicose veins of lower extremity Acid reflux Family History Medical History Relation Name Comments Cancer Father Lung cancer Father Family history of lung cancer - (Added by TW Conv) Breast cancer Father's Sister No Known Problems Mother Ovarian cancer Neg Hx Relation Name Status Comments Father Alive Father's Sister Mother Alive Social History Tobacco Use Types [...] Comments Blood Pressure 178/89 04/11/2024 11:05 AM [facility] [employer] Pulse 68 04/11/2024 11:05 AM [employer] [facility] Temperature 36.5 C (97.7 F) 04/11/2024 11:05 AM [employer] Respiratory Rate 45 04/11/2024 11:05 AM [employer] Oxygen Saturation 95% 04/11/2024 11:05 AM [employer] Inhaled Oxygen Concentration - - Weight 63.5 kg (140 lb) 10/04/2024 11:16 AM CDT Height 165.1 cm (5' 5) 10/04/2024 11:16 AM CDT Body Mass Index 23.3 10/04/2024 11:16 AM CDT Plan of Treatment Health Maintenance Due Date Last Done Comments Cervical Cancer Screening 1965 Colon Cancer Screening-Colonoscopy 1965 Depression Screening 1965 Hepatitis C Screening 1965 Hepatitis B Screening 1983 Regular Well Visit/Exam 18-64 1983 Zoster Vaccine (1 of 2) 2015 DTaP/Tdap/Td Vaccine (7 - Td or Tdap) 01/12/2024 01/11/2014, 09/25/1991, 11/11/1975, Additional history exists Covid-19 Vaccine ( season) 2024 06/07/2020, 05/10/2020 Influenza Vaccine (#1) 2024 02/01/2020 Breast Cancer Screening-Mammogram 10/04/2025 10/04/2024, 10/03/2023, 06/25/2022, Additional history exists Pneumococcal vaccine <65 Aged Out No longer eligible based on patient's age to complete this topic Procedures Procedure Name Priority Date/Time Associated Diagnosis Comments SCREENING MAMMOGRAM BILATERAL W ZARIA Schedule Routine, Read Routine (OP Routine) 10/04/2024 11:24 AM CDT Malignant neoplasm of lower-outer quadrant of right breast of female, estrogen receptor positive (HCC) from Last 3 Months or Most Recently Relevant to Health Maintenance Results * Screening Mammogram Bilateral W Zaria (10/04/2024 11:24 AM CDT) Anatomical Region Laterality Modality Breast Bilateral Mammography Impressions 10/05/2024 10:37 AM CDT Bilateral No evidence of malignancy in either breast. OVERALL BI-RADS FINAL ASSESSMENT: 2 - Benign RECOMMENDATION: Recommend bilateral annual screening mammography. Narrative 10/05/2024 10:37 AM CDT EXAMINATION: Screening Mammogram Bilateral W Zaria: 10/04/2024 COMPARISON: Relevant prior studies available at the time of interpretation were reviewed. TECHNIQUE: Mammography was performed with 2D and digital breast tomosynthesis (DBT) images. CAD was utilized. BREAST PARENCHYMAL COMPOSITION: There are scattered areas of fibroglandular density. FINDINGS: Right 1) Post-Surgical Finding: There are post breast conservation therapy findings seen in the right breast. This finding is benign. There is no suspicious mass, calcification, or architectural distortion. Left There is no suspicious mass, calcification, or architectural distortion. Triny Hazel MD IMG MAMMO PROCEDURES F inal Result from Last 3 Months or Most Recently Relevant to Health Maintenance Insurance [facility] H[facility]/PPO Address: [facility] [id number] [place] [id number] [facility] HMO/PPO Address: [place] [address] [facility] H[facility]/PPO Address: [place] [address] Advance Directives For more information, please contact: [phone] * Full Code (Latest Code Status on File) Date Activated Date Inactivated Comments 08/04/2021 3:43 PM 08/05/2021 2:37 PM * Full Code Date Activated Date Inactivated Comments 09/12/2020 12:03 PM 09/13/2020 4:01 PM Care Teams Cloth Tester Relationship Specialty Start Date End Date Harpreet Heath MD PCP - General 01/10/17 Harpreet Heath MD 01/10/17 Kelley Vicente MD [address] [facility] [address] [place] [address] Referring Physician Plastic Surgery 09/13/20 Leonel William MD [address] [facility] [address] [place], [place] [id number] Surgeon Vascular Surgery 01/05/24
--- OUTSIDE RECORDS SUMMARY | 2025-01-15 16:32 | XMS_ITS | Encounter Summary ---
Author Organization [facility] Healthcare Address [address] [place] [address] Care Team Providers Care Channel Marketing Program Manager Name Role Phone Harpreet Heath MD Primary Care Provider [phone] Harpreet Heath MD Unavailable [phone] Kelley Vicente MD Unavailable Leonel William MD Unavailable [phone] Encounter Details Date Type Department Care Team (Late st Contact Info) Description 04/05/2018 Telephone [facility] Advanced Medicine Radiation Oncology [address] [facility] [place] [address] Shaq Hawk CMA Social History [...] on filedocumented in this encounter Care Teams Channel Marketing Program Manager Relationship Specialty Start Date End Date Harpreet Heath MD PCP - General 01/10/17 Harpreet Heath MD 01/10/17 Kelley Vicente MD [address] [facility] [address] [place] [address] Referring Physician Plastic Surgery 09/13/20 Leonel William MD [address] [facility] [address] [place] [address] Surgeon Vascular Surgery 01/05/24 documented as of this encounter
--- OUTSIDE RECORDS SUMMARY | 2025-01-15 16:32 | XMS_ITS ---
Author Organization [facility] Address [address] [place] [address] Care Team Providers Care Population Health Coach Name Role Phone Harpreet Heath MD Primary Care Provider [phone] Harpreet Heath MD Unavailable [phone] Kelley Vicente MD Unavailable [phone] Leonel William MD Unavailable [phone] Active Problems Problem Noted Date Diagnosed Date Varicose veins of lower extremity with pain, lef t 11/24/2023 Varicose veins of left lower extremity with pain 05/30/2023 Hx of breast reconstruction 05/21/2021 Overview (05/21/2021): Added automatically from request for surgery [id number] Personal history of breast cancer 07/17/2020 Overview (07/17/2020): Added automatically from request for surgery [id number] Breast asymmetry between emilio maikol breast and reconstructed breast 07/17/2020 Overview (07/17/2020): Added automatically from request for surgery [id number] Encounter for cosmetic procedure 07/17/2020 Overview (07/17/2020): Added automatically from request for surgery [id number] Abnormal findings on diagnostic imaging of breas [...]
--- OUTSIDE RECORDS SUMMARY | 2025-01-15 16:32 | XMS_ITS | Encounter Summary ---
Author Organization [facility] Address [address] [place] [address] Phone Care Team Providers Care Litharge Supervisor Name Role Phone Harpreet Heath MD Primary Care Provider [phone] Harpreet Heath MD Unavailable [phone] Kelley Vicente MD Unavailable [phone] Leonel William MD Unavailable [phone] Encounter Details Date Type Department Care Team (Late st Contact Info) Description 06/22/[address] [facility] ProviderAlejandro MD [address] [place] [id number] Social History Tobacco Use Types Packs/Day [...] on filedocumented in this encounter Care Teams Litharge Supervisor Relationship Specialty Start Date End Date Harpreet Heath MD PCP - General 01/10/17 Harpreet Heath MD 01/10/17 Kelley Vicente MD [address] [place], [place] [id number] Referring Physician Plastic Surgery 09/13/20 Leonel William MD [address] [place] [address] Surgeon Vascular Surgery 01/05/24 documented as of this encounter
--- OUTSIDE RECORDS SUMMARY | 2025-01-15 16:32 | XMS_ITS | Encounter Summary ---
Author Organization [facility] Address [address] [place] [address] Phone Care Team Providers Care Training Instructor Name Role Phone Harpreet Heath MD Primary Care Provider [phone] Harpreet Heath MD Unavailable [phone] Kelley Vicente MD Unavailable [phone] Leonel William MD Unavailable [phone] Encounter Details Date Type Department Care [...] on filedocumented in this encounter Care Teams Training Instructor Relationship Specialty Start Date End Date Harpreet Heath MD PCP - General 01/10/17 Harpreet Heath MD 01/10/17 Kelley Vicente MD [address] [facility] [address] [place], [place] [id number] Referring Physician Plastic Surgery 09/13/20 Leonel William MD [address] [place] [address] Surgeon Vascular Surgery 01/05/24 documented as of this encounter
== END 2025-01-15 16:30 | disposition home or self-care (01) ==
LOC: CHSIMG 16:31
PROVIDERS: PCP Internal Medicine; Visit Provider Internal Medicine
DX: M79.642 Pain in left hand (principal); M79.641 Pain in right hand; M25.511 Pain in right shoulder
CPT/HCPCS: 73030; 73130